=== PATIENT | female | born 1975 | race Caucasian/White ===

== ENCOUNTER 2018-06-28 08:38 | Emergency (ER) | payer SELFPAY ==
[2018-06-28 08:38] VITALS: BP 154/52; PULSE 117; RESP 20; TEMP 36.6; O2SAT 98; BMI 22.3
--- NOTE | 2018-06-28 08:59 | ED.VISSUMM ---
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, she indicates last few days she has been trying to move she has had repetitive lifting she is also working in the garden, she had exacerbation of this pain where she has pain to the lumbar back that radiates down her left buttock into the mid thigh left, she has had no trauma no fever no cough no bowel or bladder complaints she has been evaluated for this lumbar back disorder she has been told she does not require surgery rather she was treated with conservative measures she denies any other past history of pancreatitis for which she occasionally takes enzymes this is hereditary pancreatitis, she denies she denies trauma. She is here with her Physical Examination: [] She is complaining of pain down her left buttock head neck chest unremarkable abdomen soft nontender the pelvis is stable she has full range of motion of lower extremities midline back is nontender the thigh is nontender she has full range of motion of her lower extremities to dorsi and plantar flexion full flexion extension at the knees and the hips no signs of cauda equina motor or sensory deficit. She has no symptoms in her right leg. Again she denies trauma the skin over the area is unremarkable Test Results: [] Emergency Department Course and Treatment: [] She assures me this is similar to what she has had in the past related to sciatica type process this appears to be an exacerbation she assures me there is no signs suggest cauda equina she has no perineal anesthesia or bowel or bladder complaints, at this time it was triggered by this repetitive activity, she will be treated with morphine and Toradol Flexeril, she will be discharged on Naprosyn and Flexeril and to follow-up with her doctor for further management and return for change in symptoms and she is comfort with this plan Treatment Plan: [] Disposition: [] Home stable Impression: [] Radicular left-sided back pain acute recurrent This note was generated with [employer] software. It may contain incorrect words, spelling, and punctuation that were not noted in review of the chart prior to signing ED Disposition - Plan for ED Patient: Chief Complaint: Lower Extremity Injury Referrals: Care Physician,No Primary [Primary Care Provider] -
--- NOTE | 2018-06-28 09:01 | ED.DEP ---
ED Disposition - Plan for ED Patient: Chief Complaint: Lower Extremity Injury Instructions: ED Sprain Strain Lumbar, ED Sciatica Prescriptions: Naproxen [Naprosyn] 500 mg PO BID PRN #20 tab Cyclobenzaprine [Flexeril] 10 mg PO TID PRN #20 tab PRN Reason: Muscle Spasm Referrals: Care Physician,No Primary [Primary Care Provider] -
[2018-06-28] MEDS: Orphenadrine 100 MG Tablet PO (09:11)
[2018-06-28] MEDS: Ketorolac 60 MG/2 ML Vial IM (09:11)
[2018-06-28] MEDS: morphine 8 MG/ML Syringe IM (09:11)
[2018-06-28 09:39] VITALS: PULSE 92; RESP 17; O2SAT 96
== END 2018-06-28 09:41 | disposition home or self-care (01) ==
PROVIDERS: Emergency Provider Emergency Medicine; Family Provider Family Medicine; PCP Family Medicine
DX: M54.9 Dorsalgia, unspecified (principal); Z87.19 Personal history of other diseases of the digestive system
CPT/HCPCS: 99283